=== PATIENT | female | born 2000 | race Caucasian/White ===

== ENCOUNTER 2019-01-11 21:38 | Emergency (ER) | payer OTHER, BC ==
[~2019-01-11] VITALS: Ht 165.1 cm; Wt 60.0 kg
[~2019-01-11 21:38] MED LIST: NO HOME MEDICATIONS; OMNICEF 300MG300 MG PO; PREDNISONE10 MG PO; ZOFRAN 4MG T4 MG/TAB PO
[2019-01-11 21:52] VITALS: BP 120/68; TEMP 98.3
[2019-01-11 23:55] VITALS: PULSE 74
== END 2019-01-11 23:55 | disposition home or self-care (01) ==
LOC: COL.ER 21:38
DX: S01.81XA Laceration without foreign body of other part of head, initial encounter (principal); W22.8XXA Striking against or struck by other objects, initial encounter; Y93.31 Activity, mountain climbing, rock climbing and wall climbing

== ENCOUNTER → 2019-01-16 | Outpatient (CLI) | payer OTHER, BC | LOC: COL.ER 17:45 | DX: Z48.02 Encounter for removal of sutures (principal) ==